=== PATIENT | male | born 1960 | race Caucasian/White ===

== ENCOUNTER 2023-09-25 09:01 | Emergency (ER) | payer BC, SELFPAY ==
[2023-09-25 09:13] VITALS: BP 115/71
[2023-09-25 09:27] VITALS: BMI 24.6
--- NOTE | 2023-09-25 09:27 | ED.GENMED ---
History of Present Illness
General
Chief Complaint: Fall
Source: patient
Exam Limitations: none
Time Seen by Provider: 09/25/23 09:19
Nursing documentation reviewed up to this point in time: agreed with
History of Present Illness
History of Present Illness:
62-year-old male with past medical history of hyperlipidemia who presents to the emergency room for evaluation after a fall off of a ladder about an hour prior to arrival here. Patient reports that he was working approximately 10 feet up on a
ladder. He says it was leaning against a wooden structure that broke; he says that the ladder fell forward and hit the side of the house and then slid down the side of the house to the ground approximately 10 feet. He says that he was on a ladder
he thinks for the entirety of the fall and landed towards his left buttock. He complains of pain in his low back as well as his left buttock since the fall. He says he did not hit his head and he did not lose consciousness. He denies any headache
or neck pain. He denies any chest or abdominal pain. He denies any shortness of breath. He denies any pain in his arms or his legs although he does have minor abrasion to the left leg and left elbow. He denies taking any blood thinners. He
thinks his last tetanus shot was greater than 5 years.
Review of Systems
Review of Systems
All Other Systems: ROS reviewed and negative except as documented in HPI and ROS
Respiratory: Denies trouble breathing
Cardiac: Denies chest pain
ABD/GI: Denies abdominal pain, nausea or vomiting
: Denies flank pain
Musculoskeletal: Reports back pain and other (Left buttock pain); Denies neck pain
Neurological: Denies dizzy, headache, weakness or numbness
Phy Exam
Physical Exam
Physical Exam:
Primary survey: Airway intact, bilateral breath sounds present, stable vitals (heart rate in the 60s, normotensive with a blood pressure of 115/71) with good pulses in all extremities, GCS 15
Secondary survey:
General: Awake, alert, oriented x3; no acute distress
Head: Normocephalic, atraumatic
Eyes: Conjunctiva normal, pupils equal round and reactive to light bilaterally
Throat: Airway intact, handling secretions
Neck: Trachea midline, no cervical spine tenderness and good range of motion cervical spine without pain
Lungs: Clear to auscultation bilaterally, no wheezing, rales, rhonchi
Heart: Regular rate and rhythm, no chest wall tenderness or crepitus, no chest wall bruising
Abd: Soft, non distended, nontender, no abdominal bruising
Back: No midline tenderness in the thoracic or lumbar spine although he does have some left lateral paraspinal tenderness in the lumbar region; no ecchymosis or abrasions to the back or flank or other signs of acute trauma
Neuro: Cranial nerves grossly intact, speech fluid, no motor or sensory deficits; ambulated into the emergency room
Skin: Minor abrasion to the left elbow, minor abrasion to the posterior left thigh as well as the lateral left lower leg
Extremities: Minor abrasions as above; no deformity; no reproducible tenderness in the extremity; full active range of motion in all extremities without discomfort, weightbearing on arrival
Scores
Heart Failure Risk
Heart Failure Risk Score: Not Applicable
Heart Score for Chest Pain Patients
STEMI patient?: Not applicable
Withdrawal Assessment of Alcohol
Withdrawal Assessment Completed?: Not applicable
Course
Orders/Labs/Results
Orders:
Orders
09/25/23 09:26
Acetaminophen [Tylenol] 1,000 mg PO NOW STA
CR Lumbar Spine Comp Min 4 Vw* Urgent
Comment:
Reason For Exam: low back pain s/p fall off of ladder
CR Pelvis Comp Min 3 Views Urgent
Comment:
Reason For Exam: left buttock pain s/p fall off ladder
09/25/23 09:27
Tetanus/Diphth/Acelpertussis [Adacel] 0.5 ml IM .ONCE ONE
09/25/23 11:24
Urinalysis Reflex To Culture Urgent
Date Specimen was Collected: 09/25/23
Time Specimen was Collected: 11:
Urine Microscopic Reflex Cult Urgent
Abnormal Lab Results
09/25/23
11:24
Urine Bilirubin 1+ A
(Negative)
Leukocyte Esterase Rfl Trace A
(Negative)
Urine Bacteria (Reflex) Few A
(Negative)
Vital Signs
Initial and Last Documented VS:
Initial Vital Signs
Temp Pulse Resp BP Pulse Ox
36.9 C 64 16 115/71 98
09/25/23 09:13 09/25/23 09:13 09/25/23 09:13 09/25/23 09:13 09/25/23 09:13
Last Documented Vital Signs
Temp Pulse Resp BP Pulse Ox
36.9 C 59 17 119/71 96
09/25/23 09:13 09/25/23 10:17 09/25/23 10:17 09/25/23 10:17 09/25/23 10:17
MDM/Problems Addressed
Differential Diagnosis Includes:
Back pain: Back strain, back spasm, compression fracture, disc herniation, back contusion/hematoma
Buttock pain: Contusion/hematoma, pelvic fracture, gluteal strain
MDM/Problems Addressed:
62-year-old male presents after a fall off of a ladder as described above. Complaining of pain in the low back as well as in the left buttock. No head trauma, no blood thinners. Primary survey intact, secondary survey as above. Plan to send for
an x-ray of the lumbar spine, x-ray of the pelvis. Will send UA to screen for hematuria. Will treat with Tylenol for pain. Will update tetanus. Reassess after the above.
X-ray pelvis shows no acute fracture, x-ray of the lumbar spine shows questionable compression fracture T12 which certainly would account for low back pain. Suspect likely contusion of the left buttock. We are pending urinalysis to screen for
hematuria but pain is really more located in the low back rather than in the mid back/CVA area. He has a benign abdominal exam and has had stable vital signs. Clinical reassessment patient is feeling much better after Tylenol. Continue to monitor.
UA negative for blood, vitals have been stable throughout ED observation for 3+ hours. Pain well-controlled with Tylenol. Stable for discharge advised Tylenol/Motrin as needed for pain. Patient comfortable with this plan. Spoke about return
precautions all questions answered.
*Radiology
Radiology exam reviewed: preliminary read by ED provider and radiology read reviewed
*Pulse Oximetry
Patient hypoxic: no
*Critical Care Note
Total Time (30-74mins, 75-104mins- exclusive of procedures): Not Applicable
Data Reviewed
Source: patient
Further Testing Considered But Not Given:
Considered need for CT head but with no reported head trauma, no signs of head trauma on exam, no headache, GCS 15 with good mental status there is no indication for emergent head imaging in my judgment
ED Attending Note
-
Portions of this chart may have been created with voice recognition software.� Occasional wrong word or��sound alike� substitutions may have occurred due to the inherent limitations of voice recognition software.
Discharge Plan
Departure
Patient Disposition: Home (Routine Discharge)
Date of Disposition: 09/25/23
Time of Disposition: 12:15
Patient with high blood pressure during this ER visit?: No
Discharge Problem:
Compression fracture of T12 vertebra, Contusion of left buttock, Abrasions of multiple sites
Instructions: Contusion (DC), Skin Abrasions (DC), Vertebral Compression Fracture ED
Referrals:
Chantelle Clayton DO [Family Provider] - Follow up in 5-7 days
Activity Restrictions/Additional Instructions:
Thank you for visiting the Emergency Department at [facility].
1. Please schedule a follow up appointment as directed. Call first thing tomorrow morning to make an appointment.
2. If indicated, please take your medications as instructed and indicated on discharge paperwork.
3. If any of your symptoms do not improve, or persist, or become more severe within 6-12 hours, please return to the emergency department for further care.
4. Please return to the emergency department if you develop a headache, neck pain/stiffness, fever greater than 100.4F, chest pain, shortness of breath, persistent nausea, vomiting, slurred speech, difficulty walking, numbness/tingling, weakness,
signs of infection or any other symptoms that are worrisome to you.
Please call [phone] if you have any questions.
Interventions
Interventions:
*Risk Screen - Suicide Last Done: 09/25/23 09:13
*General Assessment Last Done: 09/25/23 09:13
*Neglect/Abuse Screening Last Done: 09/25/23 09:13
*ED COVID-19 Vaccine History Last Done: 09/25/23 09:27
ED-Musculoskeletal Assessment Last Done: 09/25/23 09:27
ED- Neurological Assessment Last Done: 09/25/23 09:27
ED-Skin Assessment Last Done: 09/25/23 09:27
Discharge Date and Time
Print Language: [id number]
[2023-09-25] MEDS: TYLENOL 1000 MG PO (09:31)
[2023-09-25 10:17] VITALS: BP 119/71
[2023-09-25 11:50] LABS: Urine Albumin Trace (Neg - Trace); Urine Bilirubin 1+ (Negative); Urine Character Clear (Clear); Urine Color Yellow; Urine Glucose Negative (Negative); Urine Ketone Negative (Negative); Urine Leukocyte Trace (Negative); Urine Nitrite Negative (Negative); Urine Occult Blood Negative (Negative); Urine Urobilinogen Negative (Neg - 1+)
[2023-09-25 12:03] LABS: Urine Squamous Cell 0-2 /LPF (Few)
[2023-09-25 12:04] LABS: Urine Bacteria Few (Negative); Urine Red Blood Cell 0-2 /HPF (0-2); Urine White Cell 0-2 /HPF (0-5)
[2023-09-25 12:20] VITALS: BP 127/71
== END 2023-09-25 12:21 | disposition home or self-care (01) ==
LOC: EMR 09:01
PROVIDERS: EMERGENCY PHYSICIAN Emergency Medicine; FAMILY PHYSICIAN Family Medicine
DX: S22.080A Wedge compression fracture of T11-T12 vertebra, initial encounter for closed fracture (principal); S30.0XXA Contusion of lower back and pelvis, initial encounter; S80.812A Abrasion, left lower leg, initial encounter; S50.312A Abrasion of left elbow, initial encounter; W11.XXXA Fall on and from ladder, initial encounter; E78.5 Hyperlipidemia, unspecified
CPT/HCPCS: 99283; 72110; 72190; 81003; 81015; 90715